=== PATIENT | female | born 1965 | race Caucasian/White ===

== ENCOUNTER 2018-11-05 11:26 | Emergency (ER) | payer SELFPAY ==
[~2018-11-05] VITALS: Ht 154.9 cm; Wt 86.2 kg
--- NOTE | 2018-11-05 11:50 | NUR ---
Dr breen at the bedside for MSE.
--- NOTE | 2018-11-05 12:00 | NUR ---
Patient discharged to home in stable conditon. Written and verbal after care instructions given. Patient verbalizes understanding of instructions.
[2018-11-05 12:01] VITALS: BP 139/79
== END 2018-11-05 12:05 | disposition home or self-care (01) ==
LOC: ER 11:26
DX: M54.5 Low back pain (principal); X50.1XXA Overexertion from prolonged static or awkward postures, initial encounter; Y93.89 Activity, other specified; Y92.89 Other specified places as the place of occurrence of the external cause; Y99.8 Other external cause status
CPT/HCPCS: A4663